=== PATIENT | male | born 1960 | race Caucasian/White ===

== ENCOUNTER 2023-05-12 07:00 | Observation (INO) | payer OTHER ==
--- NOTE | 2023-05-09 14:50 | RAD REPORT ---
EXAM DESCRIPTION: Magdaleno Noe And Esvin (2 Views)05/09/2023 2:36 pm CLINICAL HISTORY: Preop for abdominal angiogram COMPARISON: None FINDINGS: Lungs are moderately to markedly hyperaerated The lungs appear clear of acute infiltrate. The heart is normal size IMPRESSION: COPD without visualization of an acute abnormality
[2023-05-09 14:56] LABS: Absolute Lymphocytes (CBC) 1.7 K/uL (0.7-4.9); Hematocrit 47.1 % (39.6-49.0); Lymphocytes % 12.9 % (15.3-44.8); MPV 7.4 fL (7.6-11.3); Platelets 385 thou/uL (152-406); RBC Red Blood Cell Count 4.66 M/uL (4.33-5.43)
[2023-05-09 15:03] LABS: Protime INR 1.05
[2023-05-09 15:11] LABS: Potassium 5.1 mEq/L (3.5-5.1)
--- NOTE | 2023-05-10 17:35 | EKG ---
Test Date: 2023-05-09 Test Time: 14:15:57 Flask Fitter: MAURO MEASUREMENT RESULTS: Intervals: Rate: 119 PA: 144 QRSD: 136 QT: 350 QTc: 492 [place]: P: 82 PA: 144 QRS: 105 T: 79 INTERPRETIVE STATEMENTS: Sinus tachycardia Right bundle branch block consider inferior injury Abnormal ECG Compared to ECG 05/09/2023 14:15:28 No significant changes Electronically Signed On 05-10-23 17:33:10 CDT by Mehul Crouch
--- NOTE | 2023-05-10 17:35 | EKG ---
Test Date: 2023-05-09 Test Time: 14:18:06 Mortgage Underwriter: MAURO MEASUREMENT RESULTS: Intervals: Rate: 111 WV: 160 QRSD: 126 QT: 370 QTc: 503 [place]: P: 84 W[place]: 160 QRS: 96 T: 81 INTERPRETIVE STATEMENTS: Sinus tachycardia Right bundle branch block onsider inferolateral injury Abnormal ECG Compared to ECG 05/09/2023 14:15:57 No significant changes Electronically Signed On 05-10-23 17:32:53 CDT by Mehul Crouch
--- NOTE | 2023-05-10 17:35 | EKG ---
Test Date: 2023-05-09 Test Time: 14:15:28 Residential Sales: MAURO MEASUREMENT RESULTS: Intervals: Rate: 117 AR: 158 QRSD: 128 QT: 346 QTc: 482 [place]: P: 86 AR: 158 QRS: 97 T: 81 INTERPRETIVE STATEMENTS: Sinus tachycardia Right bundle branch block consider inferolateral injury Abnormal ECG No previous ECG available for comparison Electronically Signed On 05-10-23 17:33:22 CDT by Mehul Crouch
[~2023-05-12 07:00] MED LIST: ASPIRIN 325 MG TAB ONE; ATROPINE SULF 1 MG/10 ML SYR IV ONE; CLOPIDOGREL 75 MG TABLET ONE; FENTANYL CITR 100 MCG/2 ML ONE; HEPA 1000U/500MLS 1,000 UNIT/500 ML BAG IV ONE; HEPARIN 10,000 UNIT/10 ML VIAL IV ONE; HEPARIN 5000 UNIT/ML 1 ML VIAL ONE; LIDOCAINE 1% 20 ML MDV ONE; MIDAZOLAM HCL 2 MG/2 ML INJ ONE; NITROGLYCERIN 100 MCG/ML SYR (for cath lab use only) IV ONE; NITROGLYCERIN/D5W 25 MG/250 ML BTL IV ONE; TICAGRELOR 90 MG TABLET PO ONE; VERAPAMIL HCL 10 MG/4 ML VIAL IV ONE
[2023-05-12] MEDS ORDERED: NA CHLORIDE 0.9% 500 ML ONE (07:49)
[2023-05-12] MEDS ORDERED: HEPA 1000U/500MLS 1,000 UNIT/500 ML BAG IV ONE (07:55)
--- NOTE | 2023-05-12 09:59 | P.HP ---
Certification for Inpatient Patient admitted to: Observation With expected LOS: <2 Midnights Patient will require the following post-hospital care: None Practitioner: I am a practitioner with admitting privileges, knowledge of patient current condition, hospital course, and medical plan of care. Services: Services provided to patient in accordance with Admission requirements found in Title 42 Section 412.3 of the Code of Federal Regulations Patient History Date of Service: 05/12/23 Primary Care Provider: Dr. Rodríguez Reason for admission: PAD History of Present Illness: Mr. Song Marinelli is a pleasant 62 year old male who has a past medical history of severe peripheral arterial disease s/p left frbld-qlm-pohe amputation (2019), hypertension, and tobacco use disorder who was admitted to the [facility] following a peripheral angiogram this morning. He reports that, over the last year, he has been experiencing progressively worsening right lower extremity pain. He describes the pain as pins/needles. He denies any obvious inciting or alleviating factors. He states that the pain is non-radiating. He grades the pain a 6-7/10 in severity. On review of systems, he denies any fevers, chills, headaches, dizziness, syncope, weakness, chest pain, palpitations, shortness of breath, wheezing, cough, abdominal pain, nausea/vomiting, diarrhea, constipation, or any other symptoms. He presented today for a peripheral angiogram with Dr. Crouch and the entry site was his right wrist. Due to concern with using his right wrist for crutches post- procedure, Dr. Crouch has requested admission under observation status. He was admitted to the General Internal Medicine service for further evaluation. 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 Right leg pain.) Integumentary: Unremarkable Neurological: Unremarkable Lymphatics: Unremarkable Physical Examination - Vital Signs Temperature: 98 F Blood Pressure: 135/83 Pulse: 84 Respirations: 16 - Physical Exam General: Alert, In no apparent distress, Oriented x3 HEENT: Atraumatic, Mucous membr. moist/pink, Sclerae nonicteric Neck: JVD not distended Respiratory: Clear to auscultation bilaterally, Normal air movement Cardiovascular: No edema, Regular rate/rhythm, Normal S1 S2, No gallops, No rubs, No murmurs Gastrointestinal: Normal bowel sounds, Soft and benign, Non-distended, No tenderness, No rebound, No guarding Musculoskeletal: Other (s/p left AKA. 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 Crouch - recommendations appreciated - S/P peripheral angiogram earlier today, which revealed severe peripheral artery disease - He is uncomfortable with him being discharged home using his right wrist today - Continue home losartan, clopidogrel, gabapentin - Increase home atorvastatin from 10 mg to 40 mg - Started him on aspirin # Tobacco Use Disorder - Reports smoking 1 pack/year x 45 years - Ordered nicotine patch - Tobacco cessation counseling provided Norman Art M.D. - Advance Directives Does patient have a Living Will: No Does patient have a Durable POA for Healthcare: No
[2023-05-12] MEDS ORDERED: NICOTINE 14 MG/PAT TD SCH (11:00)
[2023-05-12] MEDS: ASPIRIN 81 MG CHEWABLE TABLET PO SCH (11:31)
[2023-05-12 11:59] LABS: Absolute Lymphocytes (CBC) 1.6 K/uL (0.7-4.9); Hematocrit 48.4 % (39.6-49.0); Lymphocytes % 16.4 % (15.3-44.8); MCV 100.4 fL (80-100); MPV 7.4 fL (7.6-11.3); Platelets 351 thou/uL (152-406); RBC Red Blood Cell Count 4.82 M/uL (4.33-5.43)
--- NOTE | 2023-05-12 12:09 | OP ---
Date of Procedure: 05/12/2023 Surgeon: HERNAN PÉREZ Procedure Performed: Angiogram with runoff. Indication: Peripheral vascular disease. Access: Right radial artery 6-Qatari closed with TR band. Complications: None. Bleeding: Less than 20 mL. Description Of Procedure: After risks, benefits, alternatives were explained, the patient agreed to procedure and signed informed consent. The patient was brought into cardiac catheterization laborato , prepped and draped in the usual sterile fashion. Then, I accessed right radial artery using pedi atric micropuncture kit, placed 6-Qatari Slender sheath. Initially, I looked at the femoral arteries and they were both occluded per the ultrasound and after I established access to the right radial ar laine, I took a 4-Qatari long pigtail catheter and placed it into the distal aorta and performed dista l aortogram and runoff and then I removed the catheter and the sheath, placed TR band with good hemos tasis. Findings: 1.Distal aorta is patent. 2.The right common iliac has diffuse 70% disease and then it becomes totally occluded and there are collaterals coming from the common iliac into the right profunda, but the common femoral artery SFA t otally occluded. There are some collaterals reconstituting a slow flow to the popliteal artery and w ith diffuse disease below the knee. 3.The left common iliac artery is patent, left external iliac artery is 100% occluded and there is n o blood flow in that leg, just small collateral vessels supplying the thigh. Conclusion: Severe bilateral peripheral vascular disease, not amenable to intervention or even surge ry. Recommend: Medical management and good leg care to avoid any ulcers or infections. The patient unde mauri. /JOSE LUIS Voice ID: [id number] Report ID: [id number]
[2023-05-12 12:12] LABS: Magnesium 1.8 mg/dL (1.6-2.4); Phosphorus 3.8 mg/dL (2.5-4.9); Potassium 4.2 mEq/L (3.5-5.1)
[2023-05-12 12:42] VITALS: BMI 16.7
[2023-05-12] MEDS: GABAPENTIN 300 MG CAP PO SCH ×2 (13:49→21:13)
[2023-05-12] MEDS ORDERED: DIPHENHYDRAMINE 25 MG TAB/CAP PO PRN (20:32)
[2023-05-12] MEDS ORDERED: ATORVASTATIN 40 MG TAB PO SCH (21:00)
[2023-05-13 04:33] VITALS: O2SAT 92
--- NOTE | 2023-05-13 07:25 | P.DS ---
Admission Date: 05/12/23 Discharge Date: 05/13/23 Primary Care Provider: Dr. Rodríguez Disposition: ROUTINE DISCHARGE Discharge Condition: GOOD Reason for Admission: PAD Consultations: 1. 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 Song Marinelli is a pleasant 62 year old male who has a past medical history of severe peripheral arterial disease s/p left snlcg-nyh-jenh amputation (2019), chronic obstructive pulmonary disease, hypertension, and tobacco use disorder who was admitted to the [facility] on 05/12/2023 for following a peripheral angiogram. Due to concern with using his right wrist for crutches post-procedure, Dr. Crouch had requested admission under observation status. He was monitored in the hospital overnight and his laboratory tests were fairly unremarkable. This morning, he reports that he is doing well and he denies any concerns at this time. Dr. Crouch has cleared him for discharge this morning with outpatient follow-up. On 05/13/2023, he was seen on morning rounds and deemed medically stable for discharge. He was discharged with instructions to schedule follow-up appointments with his PCP (Dr. Rodríguez) and with Cardiology (Dr. Crouch). He was provided a prescription for atorvastatin. He was given the opportunity to ask questions and reported no further questions. Furthermore, all questions were answered to the best of my ability. A copy of this discharge summary will be sent to the above providers to facilitate continuity of care. Today, I personally spent 20 minutes on his case, of which greater than 50% of the time was spent in patient education, counseling, and coordination of care as described above. - Physical Exam General: Alert, In no apparent distress, Oriented x3 HEENT: Atraumatic, Sclerae nonicteric Neck: JVD not distended Respiratory: Clear to auscultation bilaterally, Normal air movement Cardiovascular: No edema, Regular rate/rhythm, Normal S1 S2, No gallops, No rubs, No murmurs Gastrointestinal: Normal bowel sounds, Soft and benign, Non-distended, No tenderness, No rebound, No guarding Musculoskeletal: Other (s/p left AKA. Right lower extremity is cool to touch with weak dorsalis pedis/posterior tibilais pulses). Right wrist radial site is clean, dry, and intact, without evidence of hematoma. Integumentary: No rashes Vital Signs/Physical Exam: Temp Pulse Resp BP Pulse Ox 97.4 F 85 18 153/96 H 92 05/13/23 04:00 05/13/23 04:00 05/13/23 04:00 05/13/23 04:00 05/13/23 04:00 Laboratory Data at Discharge: WBC 9.80 thou/uL (4.3-10.9) 05/12/23 11:42 Hgb 16.0 g/dL (13.6-17.9) 05/12/23 11:42 Hct 48.4 % (39.6-49.0) 05/12/23 11:42 Plt Count 351 thou/uL (152-406) 05/12/23 11:42 PT 11.6 SECONDS (9.5-12.5) 05/09/23 14:40 INR 1.05 05/09/23 14:40 APTT 33.9 SECONDS (24.3-36.9) 05/09/23 14:40 Sodium 135 mEq/L (136-145) L 05/12/23 11:42 Potassium 4.2 mEq/L (3.5-5.1) 05/12/23 11:42 BUN 7 mg/dL (7-18) 05/12/23 11:42 Creatinine 0.61 mg/dL (0.70-1.30) L 05/12/23 11:42 Glucose 124 mg/dL (74-106) H 05/12/23 11:42 Phosphorus 3.8 mg/dL (2.5-4.9) 05/12/23 11:42 Magnesium 1.8 mg/dL (1.6-2.4) 05/12/23 11:42 Home Medications: Clopidogrel Bisulfate [Plavix*] 75 mg PO DAILY 05/12/23 Gabapentin 600 mg PO TID 05/12/23 Losartan Potassium 100 mg PO DAILY 05/12/23 Aspirin Chewable [Aspirin Chewable*] 81 mg PO DAILY tab.chew 05/13/23 Atorvastatin Calcium [Lipitor] 40 mg PO BEDTIME #30 tab 05/13/23 New Medications: Atorvastatin Calcium [Lipitor] 40 mg PO BEDTIME #30 tab Physician Discharge Instructions: 1. Please call and schedule a follow-up appointment with your PCP (Dr. Rodríguez) in 3-5 days 2. Please call and schedule a follow-up appointment with Cardiology (Dr. Crouch) in 5-7 days Diet: AHA Activity: No lifting more than 10 lbs Followup: Robert Rodríguez MD [Primary Care Provider] - Mehul Crouch MD [ACTIVE - CAN ADMIT] - Time spent managing pt's care (in minutes): 20
[2023-05-13] MEDS: ASPIRIN 81 MG CHEWABLE TABLET PO SCH (08:08)
[2023-05-13] MEDS: GABAPENTIN 300 MG CAP PO SCH (08:08)
[2023-05-13 08:23] VITALS: BP 134/89; TEMP 97.7
[2023-05-13] MEDS ORDERED: LOSARTAN POTASSIUM 50 MG TABLET PO SCH (09:00)
[2023-05-13] MEDS ORDERED: ENOXAPARIN 40 MG/0.4 ML SQ SCH (09:00)
[2023-05-13] MEDS ORDERED: CLOPIDOGREL 75 MG TABLET PO SCH (09:00)
== END 2023-05-13 09:51 | disposition home or self-care (01) ==
LOC: CCL 07:00 → 2ND 08:30
PROVIDERS: ADMIT Internal Medicine; ATTEND Internal Medicine
DX: I70.203 Unspecified atherosclerosis of native arteries of extremities, bilateral legs (principal); I70.92 Chronic total occlusion of artery of the extremities; G54.6 Phantom limb syndrome with pain; I45.10 Unspecified right bundle-branch block; I10 Essential (primary) hypertension; J44.9 Chronic obstructive pulmonary disease, unspecified; Z72.0 Tobacco use; Z71.6 Tobacco abuse counseling; Z89.612 Acquired absence of left leg above knee; Z79.899 Other long term (current) drug therapy
CPT/HCPCS: 93005 ×3; 85025 ×2; 80048 ×2; 36415 ×2; 83735; 84100; 85610; 85730; 71046; 36200; 75630; 76937; C1893; J1644; J2001; J2250; J3010; J7040; J0461